=== PATIENT | male | born 1940 ===

== ENCOUNTER 2017-11-21 07:45 | Inpatient (IN) | payer MEDICARE, OTHER ==
[~2017-11-21 07:45] MED LIST: Bisacodyl 5 MG Tab PO PRN; Lactated Ringers 1,000 ML IV SCH; Lidocaine 1%/Sod Bicarbonate in NS 8.4% 1 ML Syringe IV PRN; Magnesium Hydroxide 400 MG/5 ML Susp 30 ML Cup PO PRN; Morphine 2 MG/ML Syringe IVPUSH PRN; Naloxone 0.4 MG/ML SDV IVPUSH PRN; Sennosides 8.6 MG Tab PO PRN; Sodium Chloride 0.9% 10 ML Syringe FLUSH PRN
[2017-11-21] MEDS ORDERED: EPINEPHrine 1 MG/ML SDV ONE (08:24)
[2017-11-21] MEDS ORDERED: Ropivacaine 0.5% 5 MG/ML 30 ML SDV ONE (08:24)
--- NOTE | 2017-11-21 08:51 | PCM.PREANE ---
Preanesthetic Assessment - Anesthesia/Transfusion/Family Hx Anesthesia History: Prior Anesthesia Without Reaction Family History of Anesthesia Reaction: No Transfusion History: No Prior Transfusion(s) Intubation History: Unknown - Review of Systems General: No Symptoms Pulmonary: No Symptoms Cardiovascular: No Symptoms Gastrointestinal: No Symptoms Neurological: No Symptoms Other: Reports: Diabetes - Physical Assessment NPO Status Date: 11/20/17 NPO Status Time: 23:00 Pulse: 74 O2 Sat by Pulse Oximetry: 91 (91-93%) Respiratory Rate: 18 Blood Pressure: 151/95 Temperature: 98.4 F Height: 5 ft 8 in Weight: 88.904 kg ASA Class: 3 Mental Status: Alert & Oriented x3 Airway Class: Mallampati = 2 Dentition: Reports: Dentures (top and bottom) Thyro-Mental Finger Breadths: 3 Mouth Opening Finger Breadths: 3 ROM/Head Extension: Full Lungs: Clear to Auscultation, Normal Respiratory Effort Cardiovascular: Irregular Rhythm - Lab Values: Laboratory Last Values POC Glucose 154 mg/dL (83-110) H 11/21/17 08:15 MRSA (PCR) Negative 11/06/17 12:40 - Allergies Allergies/Adverse Reactions: Allergies Allergy/AdvReac Type Severity Reaction Status Date / Time No Known Allergies Allergy Verified 11/20/17 15:28 - Blood Blood Available: No - Acknowledgements Anesthesia Type Planned: General Anesthesia Pt an Appropriate Candidate for the Planned Anesthesia: Yes Alternatives and Risks of Anesthesia Discussed w Pt/Guardian: Yes Pt/Guardian Understands and Agrees with Anesthesia Plan: Yes PreAnesthesia Questionnaire HEENT History: Reports: Glaucoma, Impaired Vision Other HEENT History: wears glasses, top and bottom denture, bilateral cerumen impaction Cardiovascular History: Reports: CAD, High Cholesterol, Hypertension Respiratory History: Reports: None Gastrointestinal History: Reports: Colon Polyp, GERD, Other (See Below) Other Gastrointestinal History: occasional heartburn Genitourinary History: Reports: Other (See Below) Other Genitourinary History: erectile dysfunction 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 Musculoskeletal History: Reports: Arthritis Neurological History: Reports: Other (See Below) Other Neuro History: dizziness Psychiatric History: Reports: None Endocrine/Metabolic History: Reports: Diabetes, Type II, Obesity/BMI 30+ Hematologic History: Reports: None Immunologic History: Reports: None Oncologic (Cancer) History: Reports: None Dermatologic History: Reports: Other (See Below) Other Dermatologic History: diaphoreisis - Past Surgical History Head Surgeries/Procedures: Reports: None HEENT Surgical History: Reports: Cataract Surgery, Eye Surgery, Tonsillectomy Cardiovascular Surgical History: Reports: None Respiratory Surgical History: Reports: None GI Surgical History: Reports: Appendectomy, Colonoscopy, Hernia, Abdominal, Hernia, Inguinal, Hernia Repair/Other, Other (See Below) (hemorroid) Female Surgical History: Reports: None Male Surgical History: Reports: None Endocrine Surgical History: Reports: None Neurological Surgical History: Reports: None Musculoskeletal Surgical History: Reports: None - SUBSTANCE USE Smoking Status *Q: Former Smoker (quit 2 weeks ago) Tobacco Use Within Last Twelve Months: Cigarettes Second Hand Smoke Exposure: No Days Per Week of Alcohol Use: 1 Number of Drinks Per Day: 1 Total Drinks Per Week: 1 Recreational Drug Use History: No - HOME MEDS Home Medications: Home Meds Aspirin [[place] Aspirin] 81 mg PO DAILY 03/04/17 [History] Gluc 2KCl/Chondr/Nirav Hy/Hy Ac [Glucosamine & Chondroitin Cap] 1 tab PO DAILY [History] Lisinopril 10 mg PO DAILY 03/04/17 [History] Multivits-Minerals/FA/Lycopene [One Daily Men's Health Tablet] 1 tab PO DAILY [History] Simvastatin [Zocor] 20 mg PO BEDTIME 03/04/17 [History] Travoprost [Travatan Z] 1 drop EYELF BEDTIME 03/04/17 [History] Vit A/C/E AC/Znox/Cupric Oxide [Eye Vitamin-Minerals Tablet] 1 tab PO DAILY 11/20 [History] metFORMIN HCl [Metformin HCl] 1,000 mg PO BID 03/04/17 [History] Fenofibrate [Fenofibrate] 54 mg PO DAILY 11/20/17 [History] Omeprazole 20 mg PO DAILY 11/20/17 [History] Sildenafil [Viagra] 100 mg PO ASDIRECTED 11/20/17 [History] - CURRENT (IN HOUSE) MEDS Current Meds: Current Medications Bisacodyl (Dulcolax) 5 mg PO DAILY PRN PRN Reason: Constipation Docusate Sodium (Colace) 100 mg PO BID BERTO Famotidine (Pepcid) 20 mg PO Q12H BERTO Lactated Ringer's (Ringers, Lactated) 1,000 mls @ 125 mls/hr IV ASDIRECTED BERTO Lidocaine/Sodium Bicarbonate (Buffered Lidocaine 1% In Ns 8.4%) 0.25 ml IV ONETIME PRN PRN Reason: Prior to IV Start Magnesium Hydroxide (Milk Of Magnesia) 30 ml PO BID PRN PRN Reason: Constipation Morphine Sulfate (Morphine) 2 mg IVPUSH Q2H PRN PRN Reason: Breakthrough Pain Naloxone HCl (Narcan) 0.1 mg IVPUSH Q5M PRN PRN Reason: Oversedation Senna (Senna) 8.6 mg PO BID PRN PRN Reason: Constipation Sodium Chloride (Saline Flush) 10 ml FLUSH ASDIRECTED PRN PRN Reason: Keep Vein Open Discontinued Medications Epinephrine HCl (Adrenalin) Confirm Administered Dose 1 mg .ROUTE .STK-MED ONE Stop: 11/21/17 08:25 Ropivacaine (Naropin 0.5%) Confirm Administered Dose 30 ml .ROUTE .STK-MED ONE Stop: 11/21/17 08:25
[2017-11-21] MEDS ORDERED: ceFAZolin 1 GM Vial ONE (09:08)
[2017-11-21] MEDS ORDERED: Lidocaine 1% 4 ML ONE (09:28)
[2017-11-21] MEDS ORDERED: Propofol 200 MG/20 ML SDV ONE (09:29)
[2017-11-21] MEDS ORDERED: Lactated Ringers 1,000 ML ONE ×2 (09:29→11:39)
[2017-11-21] MEDS ORDERED: fentaNYL 250 MCG/5 ML SDV ONE (09:29)
[2017-11-21] MEDS ORDERED: Ondansetron 4 MG/2 ML SDV ONE (09:29)
[2017-11-21] MEDS ORDERED: Midazolam 1 MG/ML 2 ML SDV ONE (09:29)
[2017-11-21] MEDS ORDERED: Succinylcholine/Normal Saline 100 MG/5 ML Syringe ONE (09:29)
[2017-11-21] MEDS ORDERED: Rocuronium 50 MG/5 ML Vial ONE (09:58)
--- NOTE | 2017-11-21 10:00 | PCM.SN ---
- Free Text/Narrative Note: Anesthesia Note: (Interscalene block note) Date: 11/21/2017 Time Out: 918 Start: 919 Stop: 933 Surgical Procedure: Left Shoulder Reverse Total Replacement Diagnosis: Left Shoulder Osteoarthritis Current Procedure: Left interscalene block under US guidance for postoperative pain control requested by Dr. Zavala. Patient chart reviewed, risk/benefits discussed with patient, consent obtained. Patient positioned supine, monitors/alarms on, oxygen placed via nasal cannula at 2 LPM. IV sedation administered: Versed 2mg IV @ 0922 Fentanyl 50 mcg IV @ 0923 Left shoulder prepped with two chloropreps. Sterile drapes placed with aseptic technique noted. Under US guidance, left subclavian artery visualized along with the left brachial plexus. Plexus followed up to C6 cricoid level, and area localized with 2mls of 1% lidocaine. 22gauge 2 inch stimiplex needle advanced under US with 0.5mV with stimulation of biceps noted. Good stimulation noted with decreased voltage and absent at 0.2mVs. 1ml of Normal Saline injected with loss of stimulation noted to confirm needle not placed intraneurally. Incremental dosing of 5mls with negative aspiration noted prior to each injection of 0.5% ropivacaine with 1:200,000 epinephrine. Total volume=30mls.
[2017-11-21] MEDS ORDERED: Bupivacaine 0.25% 30 ML SDV ONE (10:15)
[2017-11-21] MEDS ORDERED: Phenylephrine/Normal Saline 100 MCG/ML 10 ML Syringe ONE (10:24)
[2017-11-21] MEDS ORDERED: ePHEDrine/Normal Saline 25 MG/5 ML Syringe ONE (10:39)
[2017-11-21] MEDS ORDERED: HYDROmorphone 0.5 MG/0.5 ML Syringe IVPUSH PRN (10:50)
[2017-11-21] MEDS ORDERED: fentaNYL 100 MCG/2 ML SDV IVPUSH PRN (10:50)
[2017-11-21] MEDS ORDERED: Albuterol 0.083% 2.5 MG/3 ML Neb Soln NEB ONE (10:50)
[2017-11-21] MEDS ORDERED: Dexamethasone 4 MG/ML 5 ML MDV ONE (10:58)
[2017-11-21] MEDS: ceFAZolin 1 GM Vial ONE ×2 (11:16→11:48)
[2017-11-21] MEDS: Iodine/Sodium Iodide 2% Tincture 30 ML Bottle ONE ×2 (11:16→11:46)
[2017-11-21] MEDS: Bupivacaine 0.25% 30 ML SDV ONE ×2 (11:18→11:52)
[2017-11-21] MEDS: Vancomycin 1 GM SDV ONE ×2 (11:18→11:54)
[2017-11-21] MEDS: Bupivacaine 0.25% 10 ML SDV ONE ×2 (11:19→12:19)
[2017-11-21] MEDS: Triamcinolone Acetonide 40 MG/ML 1 ML MDV ONE ×2 (11:20→12:19)
[2017-11-21] MEDS ORDERED: Ketamine 500 mg/10 ML MDV ONE (11:52)
--- NOTE | 2017-11-21 12:41 | PCM.POSTAN ---
POST ANESTHESIA ASSESSMENT - MENTAL STATUS Mental Status: Alert, Oriented - VITAL SIGNS Pulse Rate: 90 SaO2: 93 Resp Rate: 14 Blood Pressure: 109/71 Temperature: 36.4 C - RESPIRATORY Respiratory Status: Respiratory Rate WNL, Airway Patent, O2 Saturation Stable, Supplemental Oxygen Free Text/Narrative:: 6L/Mask - CARDIOVASCULAR CV Status: Pulse Rate WNL, Blood Pressure Stable - GASTROINTESTINAL GI Status: No Symptoms - PAIN Pain Score: 0 Free Text/Narrative:: Refugio is able to move is fingers, palpable pulse noted, denies pain. - POST OP HYDRATION Hydration Status: Adequate & Stable
[2017-11-21] MEDS ORDERED: Cyclobenzaprine 10 MG Tab PO PRN (13:19)
[2017-11-21] MEDS ORDERED: Non-Formulary Medication 1 Each (Sildenafil [Viagra] 100 MG) PO SCH (13:30)
--- NOTE | 2017-11-21 13:36 | CR ---
Left shoulder: AP view of the left shoulder was obtained utilizing C-arm device in the operating room. Study shows intraoperative procedure of left shoulder prosthesis placement. Fluoroscopy time given as 1.9 seconds. Impression: 1. Intraoperative study. Diagnostic code #2
--- NOTE | 2017-11-21 13:36 | CR ---
Left shoulder: Single view of the left shoulder was obtained. Comparison: No prior shoulder study other than operative exam performed on the same day. Reverse left shoulder prosthesis is seen. Components are aligned. Underlying bony structures appear intact. Mild amount of soft tissue air is seen compatible with procedure. Degenerative change is partially seen throughout the cervical spine. Impression: 1. Satisfactory appearance of recently placed left shoulder prosthesis. Diagnostic code #2
[2017-11-21] MEDS: metFORMIN 500 MG Tab PO SCH (17:55)
[2017-11-21] MEDS: ceFAZolin 2 GM in Premix Bag 1 BAG IV SCH (17:56)
[2017-11-21] MEDS ORDERED: 50% Dextrose in Water 50 ML Syringe IVPUSH PRN (19:07)
--- NOTE | 2017-11-21 19:07 | PCM.CONS ---
H&P History of Present Illness - General Date of Service: 11/21/17 Admit Problem/Dx: Admission Diagnosis/Problem Admission Diagnosis/Problem Osteoarthritis of glenohumeral joint Source of Information: Patient, Provider, RN, RN Notes Reviewed, Other ( Surgical notes ) History Limitations: Reports: No Limitations - History of Present Illness Initial Comments - Free Text/Narative: Refugio Victoria is a 76 yo male patient of Dr. Zavala who is post-operative day 0 of left reverse total shoulder and right shoulder cortisone injection. Hospital medicine was consulted for post-operative medical care. At this time he is resting comfortably in bed. Pain is absent. He currently denies any chest pain, shortness of breath, palpitations, nausea, or vomiting. He carries a history of: impaired vision, CAD, HLD, HTN, GERD, erectile dysfunction, arthritis, type II DM, obesity. He is a former smoker who quit 2 weeks prior. He is a full code. His primary care provider is Dr. Sidney Park in [place]. Left Shoulder Pain Score (Numeric/FACES): 0 - Related Data Allergies/Adverse Reactions: Allergies Allergy/AdvReac Type Severity Reaction Status Date / Time No Known Allergies Allergy Verified 11/21/17 14:51 Home Medications: Home Meds Aspirin [[place] Aspirin] 81 mg PO DAILY 03/04/17 [History] Gluc 2KCl/Chondr/Nirav Hy/Hy Ac [Glucosamine & Chondroitin Cap] 1 tab PO DAILY [History] Lisinopril 10 mg PO DAILY 03/04/17 [History] Multivits-Minerals/FA/Lycopene [One Daily Men's Health Tablet] 1 tab PO DAILY [History] Simvastatin [Zocor] 20 mg PO BEDTIME 03/04/17 [History] Travoprost [Travatan Z] 1 drop EYELF BEDTIME 03/04/17 [History] Vit A/C/E AC/Znox/Cupric Oxide [Eye Vitamin-Minerals Tablet] 1 tab PO DAILY 11/20 [History] metFORMIN HCl [Metformin HCl] 1,000 mg PO BID 03/04/17 [History] Fenofibrate [Fenofibrate] 54 mg PO BID 11/20/17 [History] Omeprazole 20 mg PO DAILY 11/20/17 [History] Sildenafil [Viagra] 20 mg PO ASDIRECTED 11/20/17 [History] Past Medical History HEENT History: Reports: Glaucoma, Impaired Vision Other HEENT History: wears glasses, top and bottom denture, bilateral cerumen impaction Cardiovascular History: Reports: CAD, High Cholesterol, Hypertension Respiratory History: Reports: None Gastrointestinal History: Reports: Colon Polyp, GERD, Other (See Below) Other Gastrointestinal History: occasional heartburn Genitourinary History: Reports: Other (See Below) Other Genitourinary History: erectile dysfunction 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 Musculoskeletal History: Reports: Arthritis Neurological History: Reports: Other (See Below) Other Neuro History: dizziness Psychiatric History: Reports: None Endocrine/Metabolic History: Reports: Diabetes, Type II, Obesity/BMI 30+ Hematologic History: Reports: None Immunologic History: Reports: None Oncologic (Cancer) History: Reports: None Dermatologic History: Reports: Other (See Below) Other Dermatologic History: diaphoreisis - Past Surgical History Head Surgeries/Procedures: Reports: None HEENT Surgical History: Reports: Cataract Surgery, Eye Surgery, Tonsillectomy Cardiovascular Surgical History: Reports: None Respiratory Surgical History: Reports: None GI Surgical History: Reports: Appendectomy, Colonoscopy, Hernia, Abdominal, Hernia, Inguinal, Hernia Repair/Other, Other (See Below) Male Surgical History: Reports: None Endocrine Surgical History: Reports: None Neurological Surgical History: Reports: None Musculoskeletal Surgical History: Reports: None Social & Family History - Tobacco Use Smoking Status *Q: Current Every Day Smoker Years of Tobacco use: 60 Packs/Tins Daily: 0.5 Month Tobacco Last Used: smokes 1 to 2 cigarettes per day Second Hand Smoke Exposure: No - Caffeine Use Caffeine Use: Reports: Coffee - Alcohol Use Days Per Week of Alcohol Use: 1 Number of Drinks Per Day: 1 Total Drinks Per Week: 1 - Recreational Drug Use Recreational Drug Use: No H&P Review of Systems - Review of Systems: Review Of Systems: See Below General: Reports: No Symptoms HEENT: Reports: No Symptoms Pulmonary: Reports: No Symptoms Cardiovascular: Reports: No Symptoms Gastrointestinal: Reports: No Symptoms Genitourinary: Reports: No Symptoms Musculoskeletal: Reports: Joint Pain (left shoulder - controlled and currently 0 /10) Skin: Reports: No Symptoms Psychiatric: Reports: No Symptoms Neurological: Reports: No Symptoms Hematologic/Lymphatic: Reports: No Symptoms Immunologic: Reports: No Symptoms Exam - Exam Exam: See Below - Vital Signs Vital Signs: Last Vital Signs Temp 98.2 F 11/21/17 16:11 Pulse 101 H 11/21/17 17:33 Resp 16 11/21/17 14:00 BP 137/79 11/21/17 17:33 Pulse Ox 91 L 11/21/17 17:33 Weight: 196 lb - Exam Quality Assessment: Supplemental Oxygen, DVT Prophylaxis General: Alert, Oriented, Cooperative. No: Mild Distress HEENT: PERRLA, Hearing Intact, Mucosa Moist & [place], Nares Patent, Normal Nasal Septum, Posterior Pharynx Clear, Conjunctiva Clear, EOMI, EACs Clear, TMs Clear Neck: Supple, Trachea Midline. No: JVD, Thyromegaly Lungs: Clear to Auscultation, Normal Respiratory Effort Cardiovascular: Regular Rate, Irregular Rhythm GI/Abdominal Exam: Normal Bowel Sounds, Soft, Non-Tender, No Organomegaly, No Distention, No Abnormal Bruit, No Mass, Pelvis Stable (Male) Exam: Deferred Rectal (Males) Exam: Deferred Back Exam: Normal Inspection, Full Range of Motion Extremities: No Pedal Edema, Normal Capillary Refill, Other (Sling in place on left arm/shoulder. Shoulder is bandaged. Bandage is dry and intact. Cooling pack is in place. ) Peripheral Pulses: 2+: Radial (L), Radial (R), Posterior Tibial (L), Posterior Tibial (R), Dorsalis Pedis (L), Dorsalis Pedis (R) Skin: Warm, Dry, Intact Neurological: Cranial Nerves Intact (Grossly ) Neuro Extensive - Mental Status: Alert, Oriented x3, Normal Mood/Affect, Normal Cognition, Memory Intact Neuro Extensive - Motor, Sensory, Reflexes: CN II-XII Intact (grossly ), Normal Gait Psychiatric: Alert, Normal Affect, Normal Mood - Patient Data Lab Results Last 24 hrs: Laboratory Results - last 24 hr 11/21/17 11/21/17 Range/Units 08:15 12:39 POC Glucose 154 H 165 H (83-110) mg/dL Consult PN Assessment/Plan POD#: 0 Procedures: Procedures ASSAY THYROID STIM HORMONE (10/13/14) CARDIOVASCULAR STRESS TEST (08/21/17) COLONOSCOPY AND BIOPSY (03/07/17) COMPREHEN METABOLIC PANEL (08/09/17) ELECTROCARDIOGRAM TRACING (11/07/17) EXTRACRANIAL BILAT STUDY (08/14/17) GLUCOSE BLOOD TEST (03/07/17) GLYCOSYLATED HEMOGLOBIN TEST (08/09/17) HT MUSCLE IMAGE SPECT MULT (08/21/17) LIPID PANEL (08/09/17) OFFICE/OUTPATIENT VISIT EST (08/22/17) OFFICE/OUTPATIENT VISIT EST (02/09/14) ROUTINE VENIPUNCTURE (08/09/17) TTE W/DOPPLER COMPLETE (09/03/17) UPR/L XTREMITY ART 2 LEVELS (09/03/17) UR ALBUMIN SEMIQUANTITATIVE (08/09/17) X-RAY EXAM CHEST 2 VIEWS (11/07/17) (1) S/p reverse total shoulder arthroplasty SNOMED Code(s): 921080495 Code(s): Z96.619 - PRESENCE OF UNSPECIFIED ARTIFICIAL SHOULDER JOINT Priority: High Current Visit: Yes Qualifiers: Laterality: left Qualified Code(s): Z96.612 - Presence of left artificial shoulder joint (2) Osteoarthritis SNOMED Code(s): 504970138 Code(s): M19.90 - UNSPECIFIED OSTEOARTHRITIS, UNSPECIFIED SITE Priority: High Current Visit: Yes Qualifiers: Osteoarthritis location: shoulder Osteoarthritis type: primary Laterality : bilateral Qualified Code(s): M19.011 - Primary osteoarthritis, right shoulder; M19.012 - Primary osteoarthritis, left shoulder; M19.012 - Primary osteoarthritis, left shoulder (3) CAD (coronary artery disease) SNOMED Code(s): 66279445 Code(s): I25.10 - ATHSCL HEART DISEASE OF [place] CORONARY ARTERY W/O ANG PCTRS Priority: Low Current Visit: No Qualifiers: Coronary Disease-Associated Artery/Lesion type: unspecified vessel or lesion type [place] vs. transplanted heart: elem heart Associated angina: angina presence unspecified Qualified Code(s): I25.10 - Atherosclerotic heart disease of [place] coronary artery without angina pectoris (4) HLD (hyperlipidemia) SNOMED Code(s): 15343107 Code(s): E78.5 - HYPERLIPIDEMIA, UNSPECIFIED Priority: Low Current Visit : No Qualifiers: Hyperlipidemia type: unspecified Qualified Code(s): E78.5 - Hyperlipidemia , unspecified (5) HTN (hypertension) SNOMED Code(s): 68349946 Code(s): I10 - ESSENTIAL (PRIMARY) HYPERTENSION Priority: Low Current Visit: No Qualifiers: Hypertension type: unspecified Qualified Code(s): I10 - Essential (primary ) hypertension (6) GERD (gastroesophageal reflux disease) SNOMED Code(s): 151383814 Code(s): K21.9 - GASTRO-ESOPHAGEAL REFLUX DISEASE WITHOUT ESOPHAGITIS Priority: Low Current Visit: No Qualifiers: Esophagitis presence: esophagitis presence not specified Qualified Code(s) : K21.9 - Gastro-esophageal reflux disease without esophagitis (7) Type II diabetes mellitus SNOMED Code(s): 78418582 Code(s): E11.9 - TYPE 2 DIABETES MELLITUS WITHOUT COMPLICATIONS Priority: Medium Current Visit: Yes Qualifiers: Diabetes mellitus complication status: without complication 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: without dedicated intermodal truck driver use Qualified Code(s): E11.9 - Type 2 diabetes mellitus without complications Problem List Initiated/Reviewed/Updated: Yes My Orders Last 24 Hours: My Active Orders 11/21/17 18:16 Blood Glucose Check, Bedside [] 07,17 Plan: I/P: Acute: S/P left reverse total shoulder arthroplasty - post-operative day 0 -DVT prophylaxis and pain management per primary care team -PT/OT -IS/RT -Monitor oxygen saturation -Titrate oxygen as needed -Vital signs stable -Monitor labs Osteoarthritis of bilateral shoulder joint -Pain management per primary care team Chronic: CAD HLD - home meds HTN - stable, home meds GERD - Arthritis Type II DM - home metformin, sliding scale insulin, BID glucose checks Plan: CM for discharge planning GI prophylaxis Home medications as indicated Other orders as listed above Routine AM labs He is a full code. His PCP is Dr. Sidney Park in [place]. Thank you for allowing us to participate in the care of this patient!! Total time spent with patient 40 minutes Requesting Provider: Dr. Zavala Date Consult Requested: 11/21/17 Reason for Consult: Post-operative medical care Patient History Reviewed: Yes Admission H&P Reviewed: Yes Time Spent (in minutes): 40
[2017-11-21] MEDS ORDERED: Simvastatin 20 MG Tab PO SCH (21:00)
[2017-11-21] MEDS ORDERED: Famotidine 20 MG Tab PO SCH (21:00)
[2017-11-21] MEDS ORDERED: LATANOPROST EYELF SCH (21:00)
[2017-11-21] MEDS: Docusate Sodium 100 MG Cap PO SCH (21:29)
[2017-11-21] MEDS: Insulin Aspart 100 Units/ML 3 ML Pen SUBCUT SCH (22:57)
[2017-11-22] MEDS: ceFAZolin 2 GM in Premix Bag 1 BAG IV SCH ×2 (01:06→08:34)
[2017-11-22] MEDS: Acetaminophen/oxyCODONE 325-5 MG Tab PO PRN ×4 (01:07→13:51)
[2017-11-22] MEDS ORDERED: Pantoprazole 40 MG Tab.CR PO SCH (06:00)
[2017-11-22] MEDS ORDERED: Fenofibrate 54 MG Tab PO SCH (07:00)
--- NOTE | 2017-11-22 07:03 | PCM.SURGPN ---
- General Info Date of Service: 11/22/17 POD#: 1 Functional Status: Reports: Pain Controlled, Tolerating Diet, Ambulating, Urinating - Review of Systems Musculoskeletal: Reports: Other (The pt reports his pain is well controlled. ) - Patient Data Vitals - Most Recent: Last Vital Signs Temp 97.9 F 11/22/17 03:22 Pulse 80 11/22/17 03:22 Resp 20 11/22/17 03:22 BP 113/67 11/22/17 03:22 Pulse Ox 92 L 11/22/17 03:22 Weight - Most Recent: 203 lb 4.8 oz I&O - Last 24 Hours: Intake & Output 11/21/17 11/22/17 11/22/17 22:59 06:59 14:59 Intake Total 740 450 Balance 740 450 Lab Results Last 24 Hrs: Laboratory Results - last 24 hr 11/21/17 11/21/17 11/21/17 Range/Units 08:15 12:39 21:38 WBC (4.23-9.07) K/mm3 RBC (4.63-6.08) M/mm3 Hgb (13.7-17.5) gm/L Hct (40.1-51.0) % MCV (79.0-92.2) fl MCH (25.7-32.2) pg MCHC (32.2-35.5) g/dl RDW Std Deviation (35.1-43.9) fL Plt Count (163-337) K/mm3 MPV (9.4-12.3) fl Sodium (136-145) mEq/L Potassium (3.5-5.1) mEq/L Chloride (98-107) mEq/L Carbon Dioxide (21-32) mEq/L Anion Gap (5-15) BUN (7-18) mg/dL Creatinine (0.7-1.3) mg/dL Est Cr Clr Drug Dosing mL/min Estimated GFR (MDRD) (>60) mL/min BUN/Creatinine Ratio (14-18) Glucose (83-115) mg/dL POC Glucose 154 H 165 H 283 H (83-110) mg/dL Calcium (8.5-10.1) mg/dL Total Bilirubin (0.2-1.0) mg/dL AST (15-37) U/L ALT (16-63) U/L Alkaline Phosphatase (46-116) U/L Total Protein (6.4-8.2) g/dl Albumin (3.4-5.0) g/dl Globulin gm/dL Albumin/Globulin Ratio (1-2) 11/22/17 11/22/17 11/22/17 Range/Units 05:42 05:57 05:57 WBC 16.28 H (4.23-9.07) K/mm3 RBC 4.01 L (4.63-6.08) M/mm3 Hgb 11.9 L (13.7-17.5) gm/L Hct 37.1 L (40.1-51.0) % MCV 92.5 H (79.0-92.2) fl MCH 29.7 (25.7-32.2) pg MCHC 32.1 L (32.2-35.5) g/dl RDW Std Deviation 44.8 H (35.1-43.9) fL Plt Count 254 (163-337) K/mm3 MPV 9.6 (9.4-12.3) fl Sodium 139 (136-145) mEq/L Potassium 4.5 (3.5-5.1) mEq/L Chloride 103 (98-107) mEq/L Carbon Dioxide 24 (21-32) mEq/L Anion Gap 16.5 H (5-15) BUN 24 H (7-18) mg/dL Creatinine 1.5 H (0.7-1.3) mg/dL Est Cr Clr Drug Dosing 41.17 mL/min Estimated GFR (MDRD) 46 (>60) mL/min BUN/Creatinine Ratio 16.0 (14-18) Glucose 196 H (83-115) mg/dL POC Glucose 186 H (83-110) mg/dL Calcium 8.9 (8.5-10.1) mg/dL Total Bilirubin 0.3 (0.2-1.0) mg/dL AST 23 (15-37) U/L ALT 25 (16-63) U/L Alkaline Phosphatase 27 L (46-116) U/L Total Protein 6.4 (6.4-8.2) g/dl Albumin 3.2 L (3.4-5.0) g/dl Globulin 3.2 gm/dL Albumin/Globulin Ratio 1.0 (1-2) Med Orders - Current: Current Medications Aspirin (Ecotrin) 325 mg PO DAILY [facility] Bisacodyl (Dulcolax) 5 mg PO DAILY PRN PRN Reason: Constipation Cyclobenzaprine HCl (Flexeril) 10 mg PO TID PRN PRN Reason: Spasms Last Admin: 11/22/17 05:23 Dose: 10 mg Dextrose/Water (Dextrose 50% In Water) 50 ml IVPUSH ASDIRECTED PRN PRN Reason: Hypoglycemia Docusate Sodium (Colace) 100 mg PO BID [facility] Last Admin: 11/21/17 21:29 Dose: 100 mg Famotidine (Pepcid) 20 mg PO Q12H [facility] Last Admin: 11/21/17 21:28 Dose: 20 mg Fenofibrate (Fenofibrate) 54 mg PO WITHBREAKFAST [facility] Cefazolin Sodium/Dextrose 2 gm (/ Premix) 50 mls @ 100 mls/hr IV Q8H [facility] Stop: 11/22/17 09:29 Last Admin: 11/22/17 01:06 Dose: 100 mls/hr Insulin Aspart (Novolog) 0 unit SUBCUT QIDACANDBED [facility] PRN Reason: Protocol Last Admin: 11/21/17 22:57 Dose: 3 units Lisinopril (Prinivil) 10 mg PO DAILY [facility] Magnesium Hydroxide (Milk Of Magnesia) 30 ml PO BID PRN PRN Reason: Constipation Metformin HCl (Glucophage) 1,000 mg PO BIDMEALS [facility] Last Admin: 11/21/17 17:55 Dose: 1,000 mg Morphine Sulfate (Morphine) 2 mg IVPUSH Q2H PRN PRN Reason: Breakthrough Pain Multivitamins (Thera) 1 each PO DAILY [facility] Naloxone HCl (Narcan) 0.1 mg IVPUSH Q5M PRN PRN Reason: Oversedation Oxycodone/Acetaminophen (Percocet 325-5 Mg) 1 - 2 tab PO Q4H PRN PRN Reason: Pain Last Admin: 11/22/17 05:22 Dose: 2 tab Pantoprazole Sodium (Protonix) 40 mg PO ACBREAKFAST [facility] Last Admin: 11/22/17 05:23 Dose: 40 mg Ptom: Glucosamine W (/Condroitin Tablet) 1 each PO DAILY [facility] Latanoprost 0.004% Ophth Soln 2.5 Ml Bottle 0 each EYELF BEDTIME [facility] Senna (Senna) 8.6 mg PO BID PRN PRN Reason: Constipation Simvastatin (Zocor) 20 mg PO BEDTIME [facility] Last Admin: 11/21/17 21:28 Dose: 20 mg Sodium Chloride (Saline Flush) 10 ml FLUSH ASDIRECTED PRN PRN Reason: Keep Vein Open Discontinued Medications Albuterol (Proventil Neb Soln) 2.5 mg NEB ONETIME ONE Stop: 11/21/17 10:51 Last Admin: 11/21/17 12:59 Dose: 2.5 mg Bupivacaine HCl (Marcaine 0.25%) Confirm Administered Dose 30 ml .ROUTE .STK- MED ONE Stop: 11/21/17 09:10 Last Admin: 11/21/17 11:18 Dose: 30 ml Bupivacaine HCl (Marcaine 0.25%) Confirm Administered Dose 30 ml .ROUTE .STK- MED ONE Stop: 11/21/17 10:16 Bupivacaine HCl (Sensorcaine-Mpf 0.25%) Confirm Administered Dose 10 ml .ROUTE .STK-MED ONE Stop: 11/21/17 10:28 Last Admin: 11/21/17 11:19 Dose: 10 ml Cefazolin Sodium (Ancef) Confirm Administered Dose 2 gm .ROUTE .STK-MED ONE Stop: 11/21/17 09:30 Last Admin: 11/21/17 11:16 Dose: 2 gm Cefazolin Sodium (Ancef) Confirm Administered Dose 2 gm .ROUTE .STK-MED ONE Stop: 11/21/17 09:09 Dexamethasone (Dexamethasone) Confirm Administered Dose 20 mg .ROUTE .STK-MED ONE Stop: 11/21/17 10:59 Ephedrine Sulfate (Ephedrine In Ns) Confirm Administered Dose 25 mg .ROUTE .STK- MED ONE Stop: 11/21/17 10:40 Epinephrine HCl (Adrenalin) Confirm Administered Dose 1 mg .ROUTE .STK-MED ONE Stop: 11/21/17 08:25 Fentanyl (Sublimaze) Confirm Administered Dose 250 mcg .ROUTE .STK-MED ONE Stop: 11/21/17 09:30 Fentanyl (Sublimaze) 50 mcg IVPUSH Q5M PRN PRN Reason: Pain Hydromorphone HCl (Dilaudid) 0.5 mg IVPUSH Q15M PRN PRN Reason: severe pain Lactated Ringer's (Ringers, Lactated) 1,000 mls @ 125 mls/hr IV ASDIRECTED [facility] Last Admin: 11/21/17 08:20 Dose: 125 mls/hr Lidocaine HCl (Xylocaine-Mpf 1%) Confirm Administered Dose 4 mls @ as directed .ROUTE .[facility], [facility] ONE Stop: 11/21/17 09:29 Lactated Ringer's (Ringers, Lactated) Confirm Administered Dose 1,000 mls @ as directed .ROUTE .[facility], [facility] ONE Stop: 11/21/17 09:30 Lactated Ringer's (Ringers, Lactated) Confirm Administered Dose 1,000 mls @ as directed .ROUTE .[facility] ONE Stop: 11/21/17 11:40 Iodine (Iodine 2% Mild Tincture) Confirm Administered Dose 30 ml .ROUTE .[facility], [facility] ONE Stop: 11/21/17 09:10 Last Admin: 11/21/17 11:16 Dose: 30 ml Ketamine HCl (Ketalar) Confirm Administered Dose 500 mg .ROUTE .[facility], [facility] ONE Stop: 11/21/17 11:53 Latanoprost (Xalatan 0.005% Ophth Soln) 0 ml EYELF BEDTIME [facility] Last Admin: 11/21/17 21:32 Dose: 2.5 ml Lidocaine/Sodium Bicarbonate (Buffered Lidocaine 1% In Ns 8.4%) 0.25 ml IV ONETIME PRN PRN Reason: Prior to IV Start Midazolam HCl (Versed 1 Mg/Ml) Confirm Administered Dose 2 mg .ROUTE .[facility], [facility] ONE Stop: 11/21/17 09:30 Non-Formulary Medication (Sildenafil [Viagra]) 100 mg PO ASDIRECTED [facility] Ondansetron HCl (Zofran) Confirm Administered Dose 4 mg .ROUTE .[facility], [facility] ONE Stop: 11/21/17 09:30 Phenylephrine HCl (Phenylephrine In Ns 100 Mcg/Ml) Confirm Administered Dose 1 mg .ROUTE .[facility], [facility] ONE Stop: 11/21/17 10:25 Propofol (Diprivan 20 Ml) Confirm Administered Dose 400 mg .ROUTE .[facility], [facility] ONE Stop: 11/21/17 09:30 Rocuronium [place] (Zemuron) Confirm Administered Dose 50 mg .ROUTE .[facility], [facility] ONE Stop: 11/21/17 09:59 Ropivacaine (Naropin 0.5%) Confirm Administered Dose 30 ml .ROUTE .STK-MED ONE Stop: 11/21/17 08:25 Succinylcholine Chloride (Succinylcholine In Ns Pf) Confirm Administered Dose 100 mg .ROUTE .STK-MED ONE Stop: 11/21/17 09:30 Tranexamic Acid (Cyklokapron) Confirm Administered Dose 1,000 mg .ROUTE .STK- MED ONE Stop: 11/21/17 09:09 Last Admin: 11/21/17 11:19 Dose: 1,000 mg Triamcinolone Acetonide (Kenalog-40) Confirm Administered Dose 80 mg .ROUTE .STK -MED ONE Stop: 11/21/17 10:16 Last Admin: 11/21/17 11:20 Dose: 80 mg Vancomycin HCl (Vancomycin) Confirm Administered Dose 1 gm .ROUTE .STK-MED ONE Stop: 11/21/17 09:09 Last Admin: 11/21/17 11:18 Dose: 1 gm - Exam Wound/Incisions: Dressing Dry and Intact General: Alert, Cooperative, No Acute Distress Lungs: Normal Respiratory Effort Extremities: Other (NVS intact for BUE. Left elbow, wrist, hand motion WFL. ) - Problem List Review Problem List Initiated/Reviewed/Updated: Yes - My Orders Last 24 Hours: Active Orders 24 hr Category Date Time Status Patient Status [ADT] Routine ADT 11/21/17 07:04 Active Ambulate [RC] PER UNIT ROUTINE Care 11/21/17 07:03 Active Antiembolic Devices [RC] QSHIFT Care 11/21/17 07:06 Active Blood Glucose Check, Bedside [RC] QIDACANDBED Care 11/21/17 18:16 Active Cooling Warming Measures [RC] ASDIRECTED Care 11/21/17 10:50 Inactive May Shower [RC] ASDIRECTED Care 11/21/17 07:03 Active Notify Provider Consults [RC] ASDIRECTED Care 11/21/17 07:08 Active Notify Provider [RC] ASDIRECTED Care 11/21/17 10:50 Active Oxygen Therapy [RC] PRN Care 11/21/17 07:04 Active Pulse Oximetry [RC] ASDIRECTED Care 11/21/17 10:50 Active RT Aerosol Therapy [RC] ASDIRECTED Care 11/21/17 10:52 Active RT Incentive Spirometry [RC] Q1HWA Care 11/21/17 07:14 Active Up to Chair [RC] ASDIRECTED Care 11/21/17 07:03 Active VTE/DVT Education [RC] PER UNIT ROUTINE Care 11/21/17 07:06 Active Vital Signs [RC] Q15M Care 11/21/17 10:50 Inactive Vital Signs [RC] Q4HR Care 11/21/17 07:04 Active Consult to Physician [CONS] Routine Cons 11/21/17 07:03 Active OT Evaluation and Treatment [CONS] Routine Cons 11/21/17 07:03 Active PT Evaluation and Treatment [CONS] Routine Cons 11/21/17 07:06 Active Regular Diet [DIET] Diet 11/21/17 Lunch Active Acetaminophen/oxyCODONE [Percocet 325-5 MG] Med 11/21/17 13:19 Active 1 - 2 tab PO Q4H PRN Aspirin [Ecotrin] Med 11/22/17 09:00 Active 325 mg PO DAILY Bisacodyl [Dulcolax] Med 11/21/17 07:03 Active 5 mg PO DAILY PRN Cyclobenzaprine [Flexeril] Med 11/21/17 13:19 Active 10 mg PO TID PRN Dextrose 50% in Water Med 11/21/17 19:07 Active 50 ml IVPUSH ASDIRECTED PRN Docusate Sodium [Colace] Med 11/21/17 21:00 Active 100 mg PO BID Famotidine [Pepcid] Med 11/21/17 21:00 Active 20 mg PO Q12H Fenofibrate Med 11/22/17 07:00 Active 54 mg PO WITHBREAKFAST Insulin Aspart [NovoLOG] Med 11/21/17 22:00 Active See Protocol SUBCUT QIDACANDBED Lisinopril [Prinivil] Med 11/22/17 09:00 Active 10 mg PO DAILY Magnesium Hydroxide [Milk of Magnesia] Med 11/21/17 07:03 Active 30 ml PO BID PRN Morphine Med 11/21/17 07:03 Active 2 mg IVPUSH Q2H PRN Multivitamins,Therapeutic [Thera] Med 11/22/17 09:00 Active 1 each PO DAILY Naloxone [Narcan] Med 11/21/17 07:03 Active 0.1 mg IVPUSH Q5M PRN Pantoprazole [ProTONIX] Med 11/22/17 06:00 Active 40 mg PO ACBREAKFAST Patient's Own Medication [Ptom] Med 11/22/17 21:00 Active 0 each EYELF BEDTIME Patient's Own Medication [Ptom] Med 11/22/17 09:00 Active 1 each PO DAILY Sennosides [Senna] Med 11/21/17 07:03 Active 8.6 mg PO BID PRN Simvastatin [Zocor] Med 11/21/17 21:00 Active 20 mg PO BEDTIME ceFAZolin [Ancef] 2 gm Med 11/21/17 17:00 Active Premix Bag 1 bag IV Q8H metFORMIN [Glucophage] Med 11/21/17 17:00 Active 1,000 mg PO BIDMEALS Antiembolic Hose [OM.PC] Per Unit Routine Oth 11/21/17 07:06 Ordered DVT/VTE Prophylaxis Reflex [OM.PC] Routine Oth 11/21/17 07:03 Ordered Ice Therapy [OM.PC] Per Unit Routine Oth 11/21/17 07:05 Ordered Sequential Compression Device [OM.PC] Per Unit Routine Oth 11/21/17 07:08 Ordered Resuscitation Status Routine Resus Stat 11/21/17 07:03 Ordered Medication Orders Aspirin (Ecotrin) 325 mg PO DAILY [facility] Bisacodyl (Dulcolax) 5 mg PO DAILY PRN PRN Reason: Constipation Cyclobenzaprine HCl (Flexeril) 10 mg PO TID PRN PRN Reason: Spasms Last Admin: 11/22/17 05:23 Dose: 10 mg Dextrose/Water (Dextrose 50% In Water) 50 ml IVPUSH ASDIRECTED PRN PRN Reason: Hypoglycemia Docusate Sodium (Colace) 100 mg PO BID [facility] Last Admin: 11/21/17 21:29 Dose: 100 mg Famotidine (Pepcid) 20 mg PO Q12H [facility] Last Admin: 11/21/17 21:28 Dose: 20 mg Fenofibrate (Fenofibrate) 54 mg PO WITHBREAKFAST [facility] Cefazolin Sodium/Dextrose 2 gm (/ Premix) 50 mls @ 100 mls/hr IV Q8H [facility] Stop: 11/22/17 09:29 Last Admin: 11/22/17 01:06 Dose: 100 mls/hr Infusion: 11/21/17 18:26 Dose: 100 mls/hr Admin: 11/21/17 17:56 Dose: 100 mls/hr Insulin Aspart (Novolog) 0 unit SUBCUT QIDACANDBED [facility] PRN Reason: Protocol Last Admin: 11/21/17 22:57 Dose: 3 units Lisinopril (Prinivil) 10 mg PO DAILY [facility] Magnesium Hydroxide (Milk Of Magnesia) 30 ml PO BID PRN PRN Reason: Constipation Metformin HCl (Glucophage) 1,000 mg PO BIDMEALS [facility] Last Admin: 11/21/17 17:55 Dose: 1,000 mg Morphine Sulfate (Morphine) 2 mg IVPUSH Q2H PRN PRN Reason: Breakthrough Pain Multivitamins (Thera) 1 each PO DAILY [facility] Naloxone HCl (Narcan) 0.1 mg IVPUSH Q5M PRN PRN Reason: Oversedation Oxycodone/Acetaminophen (Percocet 325-5 Mg) 1 - 2 tab PO Q4H PRN PRN Reason: Pain Last Admin: 11/22/17 05:22 Dose: 2 tab Admin: 11/22/17 01:07 Dose: 2 tab Pantoprazole Sodium (Protonix) 40 mg PO ACBREAKFAST [facility] Last Admin: 11/22/17 05:23 Dose: 40 mg Ptom: Glucosamine W (/Condroitin Tablet) 1 each PO DAILY [facility] Latanoprost 0.004% Ophth Soln 2.5 Ml Bottle 0 each EYELF BEDTIME [facility] Senna (Senna) 8.6 mg PO BID PRN PRN Reason: Constipation Simvastatin (Zocor) 20 mg PO BEDTIME [facility] Last Admin: 11/21/17 21:28 Dose: 20 mg Sodium Chloride (Saline Flush) 10 ml FLUSH ASDIRECTED PRN PRN Reason: Keep Vein Open - Assessment Assessment (Free Text/Narrative):: POD#1 - 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 Medical management per Hospitalist service. 2. Discharge to [facility] today. 3. 325mg ASA, TEDs, frequent mobility for VTE prophylaxis. 4. Follow-up at outpatient Clinic next week. The pt's case was discussed with Dr. Zavala.
[2017-11-22] MEDS: Insulin Aspart 100 Units/ML 3 ML Pen SUBCUT SCH ×2 (08:33→10:45)
[2017-11-22] MEDS: metFORMIN 500 MG Tab PO SCH (08:33)
[2017-11-22] MEDS: Docusate Sodium 100 MG Cap PO SCH (08:37)
[2017-11-22] MEDS ORDERED: Famotidine 20 MG Tab PO SCH (09:00)
[2017-11-22] MEDS ORDERED: Aspirin 325 MG Tab.EC PO SCH (09:00)
[2017-11-22] MEDS ORDERED: CHONDROITIN PO SCH (09:00)
[2017-11-22] MEDS ORDERED: Lisinopril 10 MG Tab PO SCH (09:00)
[2017-11-22] MEDS ORDERED: Multivitamins,Therapeutic Tab PO SCH (09:00)
[2017-11-22] MEDS ORDERED: GLUCOSAMINE PO SCH (09:00)
[2017-11-22] MEDS ORDERED: Cholecalciferol (Vitamin D3) 1,000 Unit Tab PO SCH (10:30)
--- NOTE | 2017-11-22 11:23 | PCM48HPAN ---
Post Anesthesia Note - EVALUATION WITHIN 48HRS OF ANESTHETIC Vital Signs in Normal Range: Yes Patient Participated in Evaluation: Yes Respiratory Function Stable: Yes Airway Patent: Yes Cardiovascular Function Stable: Yes Hydration Status Stable: Yes Pain Control Satisfactory: Yes Nausea and Vomiting Control Satisfactory: Yes Mental Status Recovered: Yes - COMMENTS/OBSERVATIONS Free Text/Narrative:: Patient up walking around. States his nerve block wore of around 0100, and his pain is managed now with his pain pills.
--- NOTE | 2017-11-22 12:23 | PCM.CONSN ---
- General Info Date of Service: 11/22/17 Admission Dx/Problem (Free Text): Admission Diagnosis/Problem Admission Diagnosis/Problem Osteoarthritis of glenohumeral joint POD #[address] Zavala Doing well, pain controlled, no nausea. Plans to DC to Swing Bed today Functional Status: Reports: Pain Controlled, Tolerating Diet, Ambulating, Urinating, Incentive Spirometry. Denies: New Symptoms - Review of Systems General: Reports: No Symptoms HEENT: Reports: No Symptoms Pulmonary: Reports: No Symptoms Cardiovascular: Reports: No Symptoms Gastrointestinal: Reports: No Symptoms Genitourinary: Reports: No Symptoms Musculoskeletal: Reports: Shoulder Pain, Arm Pain Skin: Reports: No Symptoms Neurological: Reports: No Symptoms Psychiatric: Reports: No Symptoms - Patient Data Vitals - Most Recent: Last Vital Signs Temp 99.1 F 11/22/17 08:32 Pulse 97 11/22/17 08:32 Resp 17 11/22/17 08:32 BP 124/80 11/22/17 08:37 Pulse Ox 91 L 11/22/17 09:15 Weight - Most Recent: 203 lb 4.8 oz I&O - Last 24 Hours: Intake & Output 11/21/17 11/22/17 11/22/17 22:59 06:59 14:59 Intake Total 740 450 360 Balance 740 450 360 Lab Results Last 24 Hours: Laboratory Results - last 24 hr 11/21/17 11/21/17 11/22/17 Range/Units 12:39 21:38 05:42 WBC (4.23-9.07) K/mm3 RBC (4.63-6.08) M/mm3 Hgb (13.7-17.5) gm/L Hct (40.1-51.0) % MCV (79.0-92.2) fl MCH (25.7-32.2) pg MCHC (32.2-35.5) g/dl RDW Std Deviation (35.1-43.9) fL Plt Count (163-337) K/mm3 MPV (9.4-12.3) fl Sodium (136-145) mEq/L Potassium (3.5-5.1) mEq/L Chloride (98-107) mEq/L Carbon Dioxide (21-32) mEq/L Anion Gap (5-15) BUN (7-18) mg/dL Creatinine (0.7-1.3) mg/dL Est Cr Clr Drug Dosing mL/min Estimated GFR (MDRD) (>60) mL/min BUN/Creatinine Ratio (14-18) Glucose (83-115) mg/dL POC Glucose 165 H 283 H 186 H (83-110) mg/dL Calcium (8.5-10.1) mg/dL Total Bilirubin (0.2-1.0) mg/dL AST (15-37) U/L ALT (16-63) U/L Alkaline Phosphatase (46-116) U/L Total Protein (6.4-8.2) g/dl Albumin (3.4-5.0) g/dl Globulin gm/dL Albumin/Globulin Ratio (1-2) 11/22/17 11/22/17 11/22/17 Range/Units 05:57 05:57 10:44 WBC 16.28 H (4.23-9.07) K/mm3 RBC 4.01 L (4.63-6.08) M/mm3 Hgb 11.9 L (13.7-17.5) gm/L Hct 37.1 L (40.1-51.0) % MCV 92.5 H (79.0-92.2) fl MCH 29.7 (25.7-32.2) pg MCHC 32.1 L (32.2-35.5) g/dl RDW Std Deviation 44.8 H (35.1-43.9) fL Plt Count 254 (163-337) K/mm3 MPV 9.6 (9.4-12.3) fl Sodium 139 (136-145) mEq/L Potassium 4.5 (3.5-5.1) mEq/L Chloride 103 (98-107) mEq/L Carbon Dioxide 24 (21-32) mEq/L Anion Gap 16.5 H (5-15) BUN 24 H (7-18) mg/dL Creatinine 1.5 H (0.7-1.3) mg/dL Est Cr Clr Drug Dosing 41.17 mL/min Estimated GFR (MDRD) 46 (>60) mL/min BUN/Creatinine Ratio 16.0 (14-18) Glucose 196 H (83-115) mg/dL POC Glucose 302 H (83-110) mg/dL Calcium 8.9 (8.5-10.1) mg/dL Total Bilirubin 0.3 (0.2-1.0) mg/dL AST 23 (15-37) U/L ALT 25 (16-63) U/L Alkaline Phosphatase 27 L (46-116) U/L Total Protein 6.4 (6.4-8.2) g/dl Albumin 3.2 L (3.4-5.0) g/dl Globulin 3.2 gm/dL Albumin/Globulin Ratio 1.0 (1-2) Med Orders - Current: Current Medications Aspirin (Ecotrin) 325 mg PO DAILY [facility] Last Admin: 11/22/17 08:37 Dose: 325 mg Bisacodyl (Dulcolax) 5 mg PO DAILY PRN PRN Reason: Constipation Cholecalciferol (Vitamin D3) 5,000 units PO DAILY [facility] Last Admin: 11/22/17 10:45 Dose: 5,000 units Cyclobenzaprine HCl (Flexeril) 10 mg PO TID PRN PRN Reason: Spasms Last Admin: 11/22/17 05:23 Dose: 10 mg Dextrose/Water (Dextrose 50% In Water) 50 ml IVPUSH ASDIRECTED PRN PRN Reason: Hypoglycemia Docusate Sodium (Colace) 100 mg PO BID [facility] Last Admin: 11/22/17 08:37 Dose: 100 mg Fenofibrate (Fenofibrate) 54 mg PO WITHBREAKFAST [facility] Last Admin: 11/22/17 08:33 Dose: 54 mg Insulin Aspart (Novolog) 0 unit SUBCUT QIDACANDBED [facility] PRN Reason: Protocol Last Admin: 11/22/17 10:45 Dose: 4 units Lisinopril (Prinivil) 10 mg PO DAILY [facility] Last Admin: 11/22/17 08:37 Dose: 10 mg Magnesium Hydroxide (Milk Of Magnesia) 30 ml PO BID PRN PRN Reason: Constipation Metformin HCl (Glucophage) 1,000 mg PO BIDMEALS [facility] Last Admin: 11/22/17 08:33 Dose: 1,000 mg Morphine Sulfate (Morphine) 2 mg IVPUSH Q2H PRN PRN Reason: Breakthrough Pain Multivitamins (Thera) 1 each PO DAILY [facility] Last Admin: 11/22/17 08:37 Dose: 1 each Naloxone HCl (Narcan) 0.1 mg IVPUSH Q5M PRN PRN Reason: Oversedation Oxycodone/Acetaminophen (Percocet 325-5 Mg) 1 - 2 tab PO Q4H PRN PRN Reason: Pain Last Admin: 11/22/17 10:15 Dose: 2 tab Pantoprazole Sodium (Protonix) 40 mg PO ACBREAKFAST [facility] Last Admin: 11/22/17 05:23 Dose: 40 mg Ptom: Glucosamine W (/Condroitin Tablet) 1 each PO DAILY [facility] Last Admin: 11/22/17 08:36 Dose: Not Given Latanoprost 0.004% Ophth Soln 2.5 Ml Bottle 0 each EYELF BEDTIME [facility] Senna (Senna) 8.6 mg PO BID PRN PRN Reason: Constipation Simvastatin (Zocor) 20 mg PO BEDTIME [facility] Last Admin: 11/21/17 21:28 Dose: 20 mg Sodium Chloride (Saline Flush) 10 ml FLUSH ASDIRECTED PRN PRN Reason: Keep Vein Open Discontinued Medications Albuterol (Proventil Neb Soln) 2.5 mg NEB ONETIME ONE Stop: 11/21/17 10:51 Last Admin: 11/21/17 12:59 Dose: 2.5 mg Bupivacaine HCl (Marcaine 0.25%) Confirm Administered Dose 30 ml .ROUTE .STK- MED ONE Stop: 11/21/17 09:10 Last Admin: 11/21/17 11:52 Dose: 30 ml Bupivacaine HCl (Marcaine 0.25%) Confirm Administered Dose 30 ml .ROUTE .STK- MED ONE Stop: 11/21/17 10:16 Bupivacaine HCl (Sensorcaine-Mpf 0.25%) Confirm Administered Dose 10 ml .ROUTE .STK-MED ONE Stop: 11/21/17 10:28 Last Admin: 11/21/17 12:19 Dose: 4 ml Cefazolin Sodium (Ancef) Confirm Administered Dose 2 gm .ROUTE .STK-MED ONE Stop: 11/21/17 09:30 Last Admin: 11/21/17 11:48 Dose: 2 gm Cefazolin Sodium (Ancef) Confirm Administered Dose 2 gm .ROUTE .STK-MED ONE Stop: 11/21/17 09:09 Dexamethasone (Dexamethasone) Confirm Administered Dose 20 mg .ROUTE .STK-MED ONE Stop: 11/21/17 10:59 Ephedrine Sulfate (Ephedrine In Ns) Confirm Administered Dose 25 mg .ROUTE .[facility] ONE Stop: 11/21/17 10:40 Epinephrine HCl (Adrenalin) Confirm Administered Dose 1 mg .ROUTE .[facility] ONE Stop: 11/21/17 08:25 Famotidine (Pepcid) 20 mg PO Q12H [facility] Last Admin: 11/21/17 21:28 Dose: 20 mg Famotidine (Pepcid) 20 mg PO DAILY [facility] Last Admin: 11/22/17 08:37 Dose: 20 mg Fentanyl (Sublimaze) Confirm Administered Dose 250 mcg .ROUTE .[facility] Stop: 11/21/17 09:30 Fentanyl (Sublimaze) 50 mcg IVPUSH Q5M PRN PRN Reason: Pain Hydromorphone HCl (Dilaudid) 0.5 mg IVPUSH Q15M PRN PRN Reason: severe pain Lactated Ringer's (Ringers, Lactated) 1,000 mls @ 125 mls/hr IV ASDIRECTED [facility] Last Admin: 11/21/17 08:20 Dose: 125 mls/hr Lidocaine HCl (Xylocaine-Mpf 1%) Confirm Administered Dose 4 mls @ as directed .ROUTE .[facility] ONE Stop: 11/21/17 09:29 Lactated Ringer's (Ringers, Lactated) Confirm Administered Dose 1,000 mls @ as directed .ROUTE .[facility] ONE Stop: 11/21/17 09:30 Lactated Ringer's (Ringers, Lactated) Confirm Administered Dose 1,000 mls @ as directed .ROUTE .[facility] ONE Stop: 11/21/17 11:40 Cefazolin Sodium/Dextrose 2 gm (/ Premix) 50 mls @ 100 mls/hr IV Q8H [facility] Stop: 11/22/17 09:29 Last Admin: 11/22/17 08:34 Dose: 100 mls/hr Iodine (Iodine 2% Mild Tincture) Confirm Administered Dose 30 ml .ROUTE .[facility] ONE Stop: 11/21/17 09:10 Last Admin: 11/21/17 11:46 Dose: 18 ml Ketamine HCl (Ketalar) Confirm Administered Dose 500 mg .ROUTE .[facility] ONE Stop: 11/21/17 11:53 Latanoprost (Xalatan 0.005% Ophth Soln) 0 ml EYELF BEDTIME [facility] Last Admin: 11/21/17 21:32 Dose: 2.5 ml Lidocaine/Sodium Bicarbonate (Buffered Lidocaine 1% In Ns 8.4%) 0.25 ml IV ONETIME PRN PRN Reason: Prior to IV Start Midazolam HCl (Versed 1 Mg/Ml) Confirm Administered Dose 2 mg .ROUTE .STK-MED ONE Stop: 11/21/17 09:30 Non-Formulary Medication (Sildenafil [Viagra]) 100 mg PO ASDIRECTED [facility] Ondansetron HCl (Zofran) Confirm Administered Dose 4 mg .ROUTE .STK-MED ONE Stop: 11/21/17 09:30 Phenylephrine HCl (Phenylephrine In Ns 100 Mcg/Ml) Confirm Administered Dose 1 mg .ROUTE .STK-MED ONE Stop: 11/21/17 10:25 Propofol (Diprivan 20 Ml) Confirm Administered Dose 400 mg .ROUTE .STK-MED ONE Stop: 11/21/17 09:30 Rocuronium [employer] (Zemuron) Confirm Administered Dose 50 mg .ROUTE .STK-MED ONE Stop: 11/21/17 09:59 Ropivacaine (Naropin 0.5%) Confirm Administered Dose 30 ml .ROUTE .STK-MED ONE Stop: 11/21/17 08:25 Succinylcholine Chloride (Succinylcholine In Ns Pf) Confirm Administered Dose 100 mg .ROUTE .STK-MED ONE Stop: 11/21/17 09:30 Tranexamic Acid (Cyklokapron) Confirm Administered Dose 1,000 mg .ROUTE .STK- MED ONE Stop: 11/21/17 09:09 Last Admin: 11/21/17 11:55 Dose: 1,000 mg Triamcinolone Acetonide (Kenalog-40) Confirm Administered Dose 80 mg .ROUTE .STK -MED ONE Stop: 11/21/17 10:16 Last Admin: 11/21/17 12:19 Dose: 80 mg Vancomycin HCl (Vancomycin) Confirm Administered Dose 1 gm .ROUTE .STK-MED ONE Stop: 11/21/17 09:09 Last Admin: 11/21/17 11:54 Dose: 1 gm - Exam Quality Assessment: DVT Prophylaxis General: Alert, Oriented, Cooperative, No Acute Distress HEENT: Pupils Equal, Pupils Reactive, Mucous Membr. Moist/[place] Neck: Supple Lungs: Clear to Auscultation, Normal Respiratory Effort Cardiovascular: Regular Rate, Regular Rhythm GI/Abdominal Exam: Normal Bowel Sounds, Soft, Non-Tender, No Organomegaly (Male) Exam: Deferred Extremities: No Pedal Edema, Other (CMS + and = bilat to Upper extremities. ) Peripheral Pulses: 2+: Radial (L), Radial (R) Neurological: No New Focal Deficit Psy/Mental Status: Alert, Normal Affect, Normal Mood Consult PN Assessment/Plan POD#: 1 Procedures: Procedures ASSAY THYROID STIM HORMONE (10/13/14) CARDIOVASCULAR STRESS TEST (08/21/17) COLONOSCOPY AND BIOPSY (03/07/17) COMPREHEN METABOLIC PANEL (08/09/17) ELECTROCARDIOGRAM TRACING (11/07/17) EXTRACRANIAL BILAT STUDY (08/14/17) GLUCOSE BLOOD TEST (03/07/17) GLYCOSYLATED HEMOGLOBIN TEST (08/09/17) HT MUSCLE IMAGE SPECT MULT (08/21/17) LIPID PANEL (08/09/17) OFFICE/OUTPATIENT VISIT EST (08/22/17) OFFICE/OUTPATIENT VISIT EST (02/09/14) ROUTINE VENIPUNCTURE (08/09/17) TTE W/DOPPLER COMPLETE (09/03/17) UPR/L XTREMITY ART 2 LEVELS (09/03/17) UR ALBUMIN SEMIQUANTITATIVE (08/09/17) X-RAY EXAM CHEST 2 VIEWS (11/07/17) (1) S/p reverse total shoulder arthroplasty SNOMED Code(s): 202907065 Code(s): Z96.619 - PRESENCE OF UNSPECIFIED ARTIFICIAL SHOULDER JOINT Priority: High Current Visit: Yes Qualifiers: Laterality: left Qualified Code(s): Z96.612 - Presence of left artificial shoulder joint (2) Osteoarthritis SNOMED Code(s): 166884039 Code(s): M19.90 - UNSPECIFIED OSTEOARTHRITIS, UNSPECIFIED SITE Priority: High Current Visit: Yes Qualifiers: Osteoarthritis location: shoulder Osteoarthritis type: primary Laterality : bilateral Qualified Code(s): M19.011 - Primary osteoarthritis, right shoulder; M19.012 - Primary osteoarthritis, left shoulder; M19.012 - Primary osteoarthritis, left shoulder (3) CAD (coronary artery disease) SNOMED Code(s): 34882117 Code(s): I25.10 - ATHSCL HEART DISEASE OF [place] CORONARY ARTERY W/O ANG PCTRS Priority: Low Current Visit: No Qualifiers: Coronary Disease-Associated Artery/Lesion type: unspecified vessel or lesion type [place] vs. transplanted heart: [place] heart Associated angina: angina presence unspecified Qualified Code(s): I25.10 - Atherosclerotic heart disease of [place] coronary artery without angina pectoris (4) HLD (hyperlipidemia) SNOMED Code(s): 98272784 Code(s): E78.5 - HYPERLIPIDEMIA, UNSPECIFIED Priority: Low Current Visit : No Qualifiers: Hyperlipidemia type: unspecified Qualified Code(s): E78.5 - Hyperlipidemia , unspecified (5) HTN (hypertension) SNOMED Code(s): 47931836 Code(s): I10 - ESSENTIAL (PRIMARY) HYPERTENSION Priority: Low Current Visit: No Qualifiers: Hypertension type: unspecified Qualified Code(s): I10 - Essential (primary ) hypertension (6) GERD (gastroesophageal reflux disease) SNOMED Code(s): 574532921 Code(s): K21.9 - GASTRO-ESOPHAGEAL REFLUX DISEASE WITHOUT ESOPHAGITIS Priority: Low Current Visit: No Qualifiers: Esophagitis presence: esophagitis presence not specified Qualified Code(s) : K21.9 - Gastro-esophageal reflux disease without esophagitis (7) Type II diabetes mellitus SNOMED Code(s): 39913658 Code(s): E11.9 - TYPE 2 DIABETES MELLITUS WITHOUT COMPLICATIONS Priority: Medium Current Visit: Yes Qualifiers: Diabetes mellitus complication status: without complication Diabetes mellitus penitentiary insulin use: without superintendent container terminal use Qualified Code(s): E11.9 - Type 2 diabetes mellitus without complications Problem List Initiated/Reviewed/Updated: Yes My Orders Last 24 Hours: My Active Orders 11/22/17 10:30 Cholecalciferol (Vitamin D3) [Vitamin D3] 5,000 units PO DAILY 11/22/17 12:18 Ready for Discharge [RC] PER UNIT ROUTINE Plan: I/P: S/P total shoulder arthroplasty, POD # 1, Dr. Delacruz - Pain management and DVT prophylax - PT/OT - RT/IS - Hgb 11.9 Vital signs stable Blood sugars 150 to 300s, 302 this morning. He will discharge on sliding scale insulin to swing bed. Chronic conditions: Stable continue home meds Hypertension stable Hyperlipidemia GERD Gout Type 2 diabetes-continue home meds and sliding scale insulin on discharge Other: GI Prophylax CM/SW for DC planning- patient will discharged today to [facility] bed unit. He is stable for discharge from hospitalist standpoint today. Patient is full Code status.
[2017-11-22 13:25] VITALS: BP 141/84
[2017-11-22] MEDS ORDERED: LATANOPROST EYELF SCH (21:00)
--- NOTE | 2017-11-26 11:35 | PCM.OPNOTE ---
- General Post-Op/Procedure Note Date of Surgery/Procedure: 11/21/17 Operative Procedure(s): left reverse total shoulder arthroplasty Pre Op Diagnosis: left shoulder rotator cuff tear arthropathy Post-Op Diagnosis: Same Anesthesia Technique: General ET Tube, Regional Block Primary Surgeon: Gustabo Zavala Anesthesia Provider: Kasie Powell Petroleum Production Engineer: Isabel Barnes Petroleum Production Engineer: Chelsea Zavaleta EBL in mLs: 400 Complications: None Condition: Good
--- NOTE | 2017-11-26 12:49 | PCM.DCSUM1 ---
Discharge Summary - Hospital Course Brief History: Refugio is a 76 yo male who underwent left reverse TSA with Dr. Zavala on 11-21-2017. The procedure was completed under general anesthesia with regional block. The pt tolerated the procedure well and was admitted to the Medical-Surgical Unit. Medical management was provided by the Hospitalist service. The pt's Hospital course was uneventful. Blood sugars were closely monitored. The pt's Hgb on POD#1 was 11.9. On POD#1, 325mg ASA daily was initiated for VTE prophylaxis. SCDs and TEDs were also ordered. A Mepilex dressing was placed at the incision site at the time of surgery and remained clean and dry. The pt participated in P.T. and O.T. and progressed well. He followed the subscapularis precautions. On POD#1, the pt was deemed appropriate to discharge to home to the Swing Bed Unit in [place], [place] per his request. - Discharge Data Discharge Date: 11/22/17 Discharge Disposition: Home, Self-Care 01 Condition: Good - Patient Summary/Data Operative Procedure(s) Performed: left reverse total shoulder arthroplasty Consults: Consultations 11/21/17 07:03 Consult to Physician [CONS] Routine OT Evaluation and Treatment [CONS] Routine 11/21/17 07:06 PT Evaluation and Treatment [CONS] Routine - Patient Instructions Diet: Diabetic Diet Activity: Apply Ice, As Tolerated, Elevate Extremity Activity, Other: No forceful use of surgical arm. Use immobilizer. Driving: Do Not Drive Showering/Bathing: May Shower Wound/Incision Care: Keep Operative Site/Wound Site Clean and Dry, Do NOT Change Dressing Notify Provider of: Fever, Increased Pain, Swelling and Redness, Drainage, Nausea and/or Vomiting Other/Special Instructions: Please get up and moving around EVERY HOUR WHILE AWAKE. This helps to prevent blood clots. Please take a 325mg aspirin daily. This also helps to prevent blood clots. The aspirin is not being used for pain management, but rather for blood clot prevention so please try not to miss a dose of the medication. Please wear the immobilizer as directed. You may schedule for physical therapy. The therapist will use the [facility] reverse total shoulder arthroplasty protocol and with subscapularis repair precautions. Place ice to the limb often. Have a towel between the blue ice pad and your skin. Keep the Mepilex dressing in place until follow-up at the Clinic. You may use the pain medication as needed. The medication may cause drowsiness and/or constipation. Please contact your primary care provider for instructions if you are constipated. Please call the Clinic with other concerns - [phone]. - Discharge Plan Prescriptions/Med Rec: Acetaminophen/oxyCODONE [Percocet 325-5 MG] 1 - 2 tab PO Q4H PRN #60 tablet PRN Reason: Pain Aspirin [Ecotrin] 325 mg PO DAILY #60 tab.ec Cyclobenzaprine [Flexeril] 10 mg PO BID #40 tab Docusate Sodium [Colace] 100 mg PO BID #60 cap Home Medications: Home Meds Gluc 2KCl/Chondr/Nirav Hy/Hy Ac [Glucosamine & Chondroitin Cap] 1 tab PO DAILY [History] Lisinopril 10 mg PO DAILY 03/04/17 [History] Multivits-Minerals/FA/Lycopene [One Daily Men's Health Tablet] 1 tab PO DAILY [History] Simvastatin [Zocor] 20 mg PO BEDTIME 03/04/17 [History] Travoprost [Travatan Z] 1 drop EYELF BEDTIME 03/04/17 [History] Vit A/C/E AC/Znox/Cupric Oxide [Eye Vitamin-Minerals Tablet] 1 tab PO DAILY 11/20 [History] metFORMIN HCl [Metformin HCl] 1,000 mg PO BID 03/04/17 [History] Fenofibrate 54 mg PO BID 11/20/17 [History] Omeprazole 20 mg PO DAILY 11/20/17 [History] Sildenafil [Viagra] 20 mg PO ASDIRECTED 11/20/17 [History] Acetaminophen/oxyCODONE [Percocet 325-5 MG] 1 - 2 tab PO Q4H PRN #60 tablet [Rx] Aspirin [Ecotrin] 325 mg PO DAILY #60 tab.ec 11/22/17 [Rx] Cholecalciferol (Vitamin D3) [Vitamin D3] 5,000 units PO DAILY 11/22/17 [History ] Cyclobenzaprine [Flexeril] 10 mg PO BID #40 tab 11/22/17 [Rx] Docusate Sodium [Colace] 100 mg PO BID #60 cap 01/19/18 [Rx] Patient Handouts: Shoulder Joint Replacement Referrals: Isabel Barnes PA-C [Physician Weigh Machine Operator] - - Patient Data Vitals - Most Recent: Last Vital Signs Temp 98.6 F 11/22/17 13:22 Pulse 92 11/22/17 13:22 Resp 24 H 11/22/17 13:22 BP 141/84 H 11/22/17 13:22 Pulse Ox 91 L 11/22/17 13:22 Weight - Most Recent: 203 lb 4.8 oz Med Orders - Current: Current Medications Discontinued Medications Albuterol (Proventil Neb Soln) 2.5 mg NEB ONETIME ONE Stop: 11/21/17 10:51 Last Admin: 11/21/17 12:59 Dose: 2.5 mg Aspirin (Ecotrin) 325 mg PO DAILY [facility] Last Admin: 11/22/17 08:37 Dose: 325 mg Bisacodyl (Dulcolax) 5 mg PO DAILY PRN PRN Reason: Constipation Bupivacaine HCl (Marcaine 0.25%) Confirm Administered Dose 30 ml .ROUTE .STK- MED ONE Stop: 11/21/17 09:10 Last Admin: 11/21/17 11:52 Dose: 30 ml Bupivacaine HCl (Marcaine 0.25%) Confirm Administered Dose 30 ml .ROUTE .STK- MED ONE Stop: 11/21/17 10:16 Bupivacaine HCl (Sensorcaine-Mpf 0.25%) Confirm Administered Dose 10 ml .ROUTE .STK-MED ONE Stop: 11/21/17 10:28 Last Admin: 11/21/17 12:19 Dose: 4 ml Cefazolin Sodium (Ancef) Confirm Administered Dose 2 gm .ROUTE .STK-MED ONE Stop: 11/21/17 09:30 Last Admin: 11/21/17 11:48 Dose: 2 gm Cefazolin Sodium (Ancef) Confirm Administered Dose 2 gm .ROUTE .STK-MED ONE Stop: 11/21/17 09:09 Cholecalciferol (Vitamin D3) 5,000 units PO DAILY [facility] Last Admin: 11/22/17 10:45 Dose: 5,000 units Cyclobenzaprine HCl (Flexeril) 10 mg PO TID PRN PRN Reason: Spasms Last Admin: 11/22/17 05:23 Dose: 10 mg Dexamethasone (Dexamethasone) Confirm Administered Dose 20 mg .ROUTE .STK-MED ONE Stop: 11/21/17 10:59 Dextrose/Water (Dextrose 50% In Water) 50 ml IVPUSH ASDIRECTED PRN PRN Reason: Hypoglycemia Docusate Sodium (Colace) 100 mg PO BID [facility] Last Admin: 11/22/17 08:37 Dose: 100 mg Ephedrine Sulfate (Ephedrine In Ns) Confirm Administered Dose 25 mg .ROUTE .STK- MED ONE Stop: 11/21/17 10:40 Epinephrine HCl (Adrenalin) Confirm Administered Dose 1 mg .ROUTE .STK-MED ONE Stop: 11/21/17 08:25 Famotidine (Pepcid) 20 mg PO Q12H [facility] Last Admin: 11/21/17 21:28 Dose: 20 mg Famotidine (Pepcid) 20 mg PO DAILY [facility] Last Admin: 11/22/17 08:37 Dose: 20 mg Fenofibrate (Fenofibrate) 54 mg PO WITHBREAKFAST [facility] Last Admin: 11/22/17 08:33 Dose: 54 mg Fentanyl (Sublimaze) Confirm Administered Dose 250 mcg .ROUTE .STK-MED ONE Stop: 11/21/17 09:30 Fentanyl (Sublimaze) 50 mcg IVPUSH Q5M PRN PRN Reason: Pain Hydromorphone HCl (Dilaudid) 0.5 mg IVPUSH Q15M PRN PRN Reason: severe pain Lactated Ringer's (Ringers, Lactated) 1,000 mls @ 125 mls/hr IV ASDIRECTED [facility] Last Admin: 11/21/17 08:20 Dose: 125 mls/hr Lidocaine HCl (Xylocaine-Mpf 1%) Confirm Administered Dose 4 mls @ as directed .ROUTE .STK-MED ONE Stop: 11/21/17 09:29 Lactated Ringer's (Ringers, Lactated) Confirm Administered Dose 1,000 mls @ as directed .ROUTE .STK-MED ONE Stop: 11/21/17 09:30 Lactated Ringer's (Ringers, Lactated) Confirm Administered Dose 1,000 mls @ as directed .ROUTE .STK-MED ONE Stop: 11/21/17 11:40 Cefazolin Sodium/Dextrose 2 gm (/ Premix) 50 mls @ 100 mls/hr IV Q8H [facility] Stop: 11/22/17 09:29 Last Admin: 11/22/17 08:34 Dose: 100 mls/hr Insulin Aspart (Novolog) 0 unit SUBCUT QIDACANDBED [facility] PRN Reason: Protocol Last Admin: 11/22/17 10:45 Dose: 4 units Iodine (Iodine 2% Mild Tincture) Confirm Administered Dose 30 ml .ROUTE .STK- MED ONE Stop: 11/21/17 09:10 Last Admin: 11/21/17 11:46 Dose: 18 ml Ketamine HCl (Ketalar) Confirm Administered Dose 500 mg .ROUTE .STK-MED ONE Stop: 11/21/17 11:53 Latanoprost (Xalatan 0.005% Ophth Soln) 0 ml EYELF BEDTIME [facility] Last Admin: 11/21/17 21:32 Dose: 2.5 ml Lidocaine/Sodium Bicarbonate (Buffered Lidocaine 1% In Ns 8.4%) 0.25 ml IV ONETIME PRN PRN Reason: Prior to IV Start Lisinopril (Prinivil) 10 mg PO DAILY [facility] Last Admin: 11/22/17 08:37 Dose: 10 mg Magnesium Hydroxide (Milk Of Magnesia) 30 ml PO BID PRN PRN Reason: Constipation Metformin HCl (Glucophage) 1,000 mg PO BIDMEALS [facility] Last Admin: 11/22/17 08:33 Dose: 1,000 mg Midazolam HCl (Versed 1 Mg/Ml) Confirm Administered Dose 2 mg .ROUTE .STK-MED ONE Stop: 11/21/17 09:30 Morphine Sulfate (Morphine) 2 mg IVPUSH Q2H PRN PRN Reason: Breakthrough Pain Multivitamins (Thera) 1 each PO DAILY [facility] Last Admin: 11/22/17 08:37 Dose: 1 each Naloxone HCl (Narcan) 0.1 mg IVPUSH Q5M PRN PRN Reason: Oversedation Non-Formulary Medication (Sildenafil [Viagra]) 100 mg PO ASDIRECTED [facility] Ondansetron HCl (Zofran) Confirm Administered Dose 4 mg .ROUTE .STK-MED ONE Stop: 11/21/17 09:30 Oxycodone/Acetaminophen (Percocet 325-5 Mg) 1 - 2 tab PO Q4H PRN PRN Reason: Pain Last Admin: 11/22/17 13:51 Dose: 2 tab Pantoprazole Sodium (Protonix) 40 mg PO ACBREAKFAST [facility] Last Admin: 11/22/17 05:23 Dose: 40 mg Ptom: Glucosamine W (/Condroitin Tablet) 1 each PO DAILY [facility] Last Admin: 11/22/17 08:36 Dose: Not Given Latanoprost 0.004% Ophth Soln 2.5 Ml Bottle 0 each EYELF BEDTIME [facility] Phenylephrine HCl (Phenylephrine In Ns 100 Mcg/Ml) Confirm Administered Dose 1 mg .ROUTE .STK-MED ONE Stop: 11/21/17 10:25 Propofol (Diprivan 20 Ml) Confirm Administered Dose 400 mg .ROUTE .STK-MED ONE Stop: 11/21/17 09:30 Rocuronium Hennessey (Zemuron) Confirm Administered Dose 50 mg .ROUTE .STK-MED ONE Stop: 11/21/17 09:59 Ropivacaine (Naropin 0.5%) Confirm Administered Dose 30 ml .ROUTE .STK-MED ONE Stop: 11/21/17 08:25 Senna (Senna) 8.6 mg PO BID PRN PRN Reason: Constipation Simvastatin (Zocor) 20 mg PO BEDTIME [facility] Last Admin: 11/21/17 21:28 Dose: 20 mg Sodium Chloride (Saline Flush) 10 ml FLUSH ASDIRECTED PRN PRN Reason: Keep Vein Open Succinylcholine Chloride (Succinylcholine In Ns Pf) Confirm Administered Dose 100 mg .ROUTE .STK-MED ONE Stop: 11/21/17 09:30 Tranexamic Acid (Cyklokapron) Confirm Administered Dose 1,000 mg .ROUTE .STK- MED ONE Stop: 11/21/17 09:09 Last Admin: 11/21/17 11:55 Dose: 1,000 mg Triamcinolone Acetonide (Kenalog-40) Confirm Administered Dose 80 mg .ROUTE .STK -MED ONE Stop: 11/21/17 10:16 Last Admin: 11/21/17 12:19 Dose: 80 mg Vancomycin HCl (Vancomycin) Confirm Administered Dose 1 gm .ROUTE .STK-MED ONE Stop: 11/21/17 09:09 Last Admin: 11/21/17 11:54 Dose: 1 gm *Q Meaningful Use (DIS) - VTE *Q VTE Criteria *Q: - Stroke *Q Stroke Criteria *Q: - AMI *Q AMI Criteria *Q:
--- NOTE | 2017-11-26 12:55 | OR ---
DATE OF OPERATION: 11/21/2017 SURGEON: Gustabo Zavala MD OPERATION PERFORMED: Left reverse total shoulder arthroplasty. PREOPERATIVE DIAGNOSIS: Left shoulder rotator cuff tear arthropathy. POSTOPERATIVE DIAGNOSIS: Left shoulder rotator cuff tear arthropathy. ANESTHESIA: General endotracheal intubation with regional interscalene block. ANESTHESIA PROVIDER: Denisse Kamara. MACHINE STAKER: Isabel Barnes PA-C and Chelsea Zavaleta LPN. ESTIMATED BLOOD LOSS: 400 mL. COMPLICATIONS: None. CONDITION: Stable. IMPLANTS: 1. Arthrex 39 mm Glenosphere. 2. Arthrex 39 +3 mm polyethylene. 3. Size 6 Arthrex humeral stem 135 degrees angle. 4. Arthrex x2 6.5 mm locking screws. DESCRIPTION OF PROCEDURE: The patient was identified in the preop holding area. Proper site was marked and identified by the surgeon. The patient was taken back to the operating theater where after adequate anesthesia, the patient's left shoulder was sterilely prepped and draped in the usual sterile fashion. OR time-out was performed. The patient received 2 g IV Ancef. At this time, standard deltopectoral incision was made. This was taken down to the interval. The vein was identified and was retracted laterally. This was taken down to the clavipectoral fascia which was incised. The conjoined tendon was then retracted medially and a Hohmann retractor was placed in the subdeltoid space. All adhesions were then removed at this time. A 0 Vicryl stick tie was used for tying off the anterior humeral circumflex vessels. The biceps tendon was identified and the patient was noted to have a previous biceps tendon rupture which was already adhesed in the sub pectoralis region. The interval was then opened all the way back to the level of the glenoid and takedown of the subscapularis tendon was done and was tagged. At this time, the humeral head was then dislocated. At this time, retractors were placed. The patient was noted to have significant high-grade tearing to the supraspinatus. The neck cut guide was then placed and neck cut was then completed in roughly 30 degrees of retroversion. Attention was turned to the glenoid. Anterior and posterior retractors were placed in the glenoid. Guide pin was placed in a center-center position after all the labrum and soft tissue was removed. A reamer for a medium Glenosphere was then placed and the central drill hole was then drilled and then the peripheral reamer was then used for a medium glenoid base plate. This was found to have adequate purchase in the bone. At this time, the medium glenoid baseplate was then impacted into place and inferior and superior locking screws were then placed along with the middle compression screw. This was found to have good adequate fixation and on radiographs this showed to be seated well with no signs of liftoff or loosening and it was perpendicular to the glenoid. At this time, attention was turned back to the humerus starting with a size 5 broach. I was able to broach up to a size 6 which was found to be rotationally and vertically stable. At this time, we decided that we would like to trial 39 Glenosphere. At the 39+ 4, I did believe would have too much tension. We did do this and 39 had adequate tension with throughout range of motion. The size 6 humeral stem was then impacted into place with a +3 mm polyethylene after the 39 mm Glenosphere was impacted into place. The patient's shoulder was brought through range of motion and was found to be stable throughout range of motion with no signs of dislocation or loosening. The #2 FiberWire was then used through the suture holes in the humeral stem for repair of the subscapularis tendon. At this time, 1 L dilute Betadine solution was irrigated through the shoulder along with 3 L pulse lavage irrigation with Ancef. Topical tranexamic acid was used along with vancomycin powder. The deltopectoral interval was then tagged, 2-0 Vicryl was used subcutaneously and Prineo was used for the skin. The patient tolerated the procedure well and sent to PACU in stable condition. BRANDON /[id number]
== END 2017-11-22 14:03 | disposition home or self-care (01) | DRG 483 ==
LOC: JD.SDS 07:45 → EDSTATUS 12:45 → JD.MS 13:17
PROVIDERS: ADMIT Orthopaedic Surgery; ATTEND Orthopaedic Surgery
PROC: 0RRK0JZ Replacement of Left Shoulder Joint with Synthetic Substitute, Open Approach (ICD-10-PCS; principal; 2017-11-21)
DX: M79.602 Pain in left arm (principal); M19.012 Primary osteoarthritis, left shoulder; M19.011 Primary osteoarthritis, right shoulder; E11.9 Type 2 diabetes mellitus without complications; E78.5 Hyperlipidemia, unspecified; N52.9 Male erectile dysfunction, unspecified; K21.9 Gastro-esophageal reflux disease without esophagitis; I25.10 Atherosclerotic heart disease of native coronary artery without angina pectoris; I10 Essential (primary) hypertension; H40.9 Unspecified glaucoma; H54.7 Unspecified visual loss; F17.210 Nicotine dependence, cigarettes, uncomplicated; Z79.84 Long term (current) use of oral hypoglycemic drugs; Z79.82 Long term (current) use of aspirin; Z79.899 Other long term (current) drug therapy; M25.512 Pain in left shoulder
CPT/HCPCS: 23472; 73020; 76000; 82962 ×2; 87641; 94640; A9270; C1713 ×4; C1776 ×5; J0171; J0330; J0690 ×2; J1100; J2250; J2405; J2795; J3010; J3301; J3370; J3490; J7050; J7120 ×3; 01630; 36415; 64415; 80053; 85027; 94760; 97110-GP; 97161-GP; 97166-GO; 97530-GP; 97535-GO; J1815-GY; J2001; J2704